=== PATIENT | female | born 1990 | race Two or more races ===

== ENCOUNTER 2016-06-04 18:19 | Emergency (ER) | payer MEDICAID ==
[~2016-06-04] VITALS: Ht 167.6 cm; Wt 92.1 kg
[~2016-06-04 18:19] MED LIST: AZITHROMYCIN250 MG ORAL; CYCLOBENZAPRINE10 MG ORAL; IBUPROFEN600 MG ORAL; NKM; TAMIFLU75 MG ORAL
[2016-06-04] MEDS ORDERED: MULTIVITAMINS1 EAC8 ORAL (18:50)
[2016-06-04 18:51] VITALS: BP 101/60
[2016-06-04] MEDS ORDERED: Methocarbamol 750mg tab ORAL ONE (19:00)
[2016-06-04] MEDS ORDERED: TYLENOL EXTRA500 MG ORAL (20:10)
[2016-06-04] MEDS ORDERED: ROBAXIN-750750 MG PO (20:10)
[2016-06-04 20:52] VITALS: BP 101/60
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
--- NOTE | 2016-06-05 11:44 | Diagnostic Imaging Report ---
Indication: PAIN Technique: 3 views of the cervical spine Comparison: none Findings: No prevertebral soft tissue swelling. Normal bony alignment. No acute fractures. No dislocations. Vertebral body heights are preserved. Disc spaces are preserved. Impression: Negative
== END 2016-06-04 20:17 | disposition home or self-care (01) ==
LOC: EMR 19:12
DX: S16.1XXA Strain of muscle, fascia and tendon at neck level, initial encounter (principal); Z98.84 Bariatric surgery status; V43.52XA Car driver injured in collision with other type car in traffic accident, initial encounter; Y92.410 Unspecified street and highway as the place of occurrence of the external cause; Y99.8 Other external cause status
CPT/HCPCS: 72040; 99284

== ENCOUNTER 2017-03-26 17:27 | Emergency (ER) | payer MEDICAID ==
[~2017-03-26] VITALS: Ht 167.6 cm; Wt 81.6 kg
[~2017-03-26 17:27] MED LIST changes: +MULTIVITAMINS1 EAC8 ORAL; +ROBAXIN-750750 MG PO; +TYLENOL EXTRA500 MG ORAL
[2017-03-26 17:40] VITALS: BP 108/71
[2017-03-26] MEDS ORDERED: Mylanta II UD 30ml ORAL ONE (18:15)
[2017-03-26] MEDS ORDERED: Lidocaine 2% Visc 15ml soln ORAL ONE (18:15)
[2017-03-26 18:16] LABS: BASOPHILS % (AUTO) 0.8 % (0.0-2.0); EOSINOPHILS % (AUTO) 0.8 % (0.0-3.0); HEMATOCRIT 40.9 % (37.0-47.0); LYMPHOCYTES % (AUTO) 19.4 % (20.0-45.0); MEAN CORPUSCULAR VOLUME 88 FL (80-99); MONOCYTES % (AUTO) 5.9 % (1.0-10.0); NEUTROPHILS % (AUTO) 73.1 % (45.0-75.0); PLATELET COUNT 256 K/UL (150-450); RED BLOOD COUNT 4.62 M/UL (4.20-5.40); RED CELL DISTRIBUTION WIDTH 13.4 % (11.6-14.8); WHITE BLOOD COUNT 8.8 K/UL (4.8-10.8)
[2017-03-26 18:21] LABS: APPEARANCE,URINE CLEAR; BILIRUBIN, URINE NEGATIVE (NEGATIVE); GLUCOSE, URINE (UA) NEGATIVE (NEGATIVE); KETONES,URINE NEGATIVE (NEGATIVE); LEUKOCYTE ESTERASE ,URINE 1+ (NEGATIVE); NITRITE,URINE NEGATIVE (NEGATIVE); PH,URINE 7 (4.5-8.0); PROTEIN,URINE NEGATIVE (NEGATIVE); UROBILINOGEN,URINE 1 MG/DL (0.0-1.0)
[2017-03-26 18:22] LABS: COLOR,URINE YELLOW
[2017-03-26 18:42] LABS: ANION GAP 7 mmol/L (5-15); BLOOD UREA NITROGEN 14 mg/dL (7-18); CARBON DIOXIDE 28 MMOL/L (21-32); CHLORIDE 103 MMOL/L (98-107); CREATININE 0.7 MG/DL (0.55-1.30); POTASSIUM 3.9 MMOL/L (3.5-5.1); SODIUM 138 MMOL/L (136-145)
[2017-03-26 18:46] LABS: ALANINE AMINOTRANSFERASE 20 U/L (12-78); ALBUMIN 3.9 G/DL (3.4-5.0); ALBUMIN/GLOBULIN RATIO 0.9 (1.0-2.7); ALKALINE PHOSPHATASE 82 U/L (46-116); ASPARTATE AMINO TRANSFERASE 53 U/L (15-37); BILIRUBIN,TOTAL 0.3 MG/DL (0.2-1.0)
[2017-03-26] MEDS ORDERED: Ketorolac 30mg Inj IV ONE (19:15)
--- NOTE | 2017-03-26 19:15 | Emergency Room Report ---
History of Present Illness General Chief Complaint: Abdominal Pain Source: Patient Present Illness HPI 26 YO Female presents to the ED c/o acute onset of 9/10 in severity epigastric pain with bloating sensation times one hour. Patient reports for prior episodes over the course of 3 months with similar presentation. Patient denies fevers, chills, nausea, vomiting, constipation or diarrhea. Patient reports pain discomfort in the right shoulder noted just prior to onset of abdominal pain this is consistent with previous episodes. She states she had a followup visit with her GI surgeon last week and was given referral for liver ultrasound. Patient denies right upper quadrant pain she reports pain is localized to the epigastric area. She denies history of acid reflux or complications after surgery. Patient reports she had a gastric sleeve surgery performed one year ago. He should also noted that her symptoms onset at each episode for approximately 20-30 minutes after oral intake. She denies blood in the stool or black tarry stools. She denies , dysuria or hematuria . She denies radiation of her pain to the back . Denies CP, Palpitations, LOC, AMS , dizziness, Changes in Vision, Sensation, paresthesias, or a sudden severe headache. Allergies: Coded Allergies: ASPIRIN (Verified Allergy, Unknown, Irritate stomach, 03/26/17) Patient History Past Medical History: see triage record, other - gastric sleeve 1 year ago. Past Surgical History: none Pertinent Family History: none Last Menstrual Period: 03/08/17 Now: No Reviewed Nursing Documentation: PMH: Agreed, PSxH: Agreed Nursing Documentation-PMH Past Medical History: No History, Except For Hx Cardiac Problems: No Hx Hypertension: No Hx Pacemaker: No Hx Asthma: No Hx COPD: No Hx Diabetes: No Hx Cancer: No Hx Gastrointestinal Problems: Yes - Gastric sleeve bypass Hx Dialysis: No History Of Psychiatric Problem: No Hx Neurological Problems: No Hx Cerebrovascular Accident: No Hx Seizures: No Review of Systems All Other Systems: negative except mentioned in HPI Physical Exam Vital Signs Date Time Temp Pulse Resp B/P (MAP) Pulse Ox O2 Delivery O2 Flow Rate FiO2 03/26/17 17:39 98.1 71 20 108/71 100 Room Air Sp02 EP Interpretation: reviewed, normal General Appearance: well appearing, no apparent distress, alert, GCS 15, non- toxic Head: normocephalic, atraumatic ENT: hearing grossly normal, normal voice Neck: full range of motion Respiratory: lungs clear, normal breath sounds, speaking full sentences Cardiovascular #1: regular rate, rhythm Gastrointestinal: normal bowel sounds, non tender, soft, no organomegaly, no peritonitis, non-distended, no guarding, tenderness, other - Negative [place] signs, Negative MacBurney's sign, No Peritoneal signs. Rectal: deferred Musculoskeletal: back normal, gait/station normal, normal range of motion Neurologic: alert, oriented x3, responsive, motor strength/tone normal, sensory intact, normal gait, speech normal, grossly normal Psychiatric: judgement/insight normal Skin: normal color, no rash, warm/dry, well hydrated Medical Decision Making PA Attestation Dr. hickman is my supervising Physician whom patient management has been discussed with. Diagnostic Impression: Primary Impression: Abdominal pain Qualified Codes: R10.13 - Epigastric pain Additional Impression: History of gastric stapling ER Course 26 YO Female presents to the ED c/o acute onset of 9/10 in severity epigastric pain with bloating sensation times one hour. Patient reports for prior episodes over the course of 3 months with similar presentation. Patient denies fevers, chills, nausea, vomiting, constipation or diarrhea. Patient reports pain discomfort in the right shoulder noted just prior to onset of abdominal pain this is consistent with previous episodes. She states she had a followup visit with her GI surgeon last week and was given referral for liver ultrasound. Patient denies right upper quadrant pain she reports pain is localized to the epigastric area. She denies history of acid reflux or complications after surgery. Patient reports she had a gastric sleeve surgery performed one year ago. He should also noted that her symptoms onset at each episode for approximately 20-30 minutes after oral intake. She denies blood in the stool or black tarry stools. She denies , dysuria or hematuria . She denies radiation of her pain to the back . Denies CP, Palpitations, LOC, AMS , dizziness, Changes in Vision, Sensation, paresthesias, or a sudden severe headache. Ddx considered but are not limited to Diverticulitis, acute appy, diarrhea,UC, PUD, GE, pancreatitis, gallstones, gastric sleeve complication just to name a few. Vital signs: are WNL, pt. is afebrile H&PE are most consistent with Episodic epigastric pain x 3 months with hx of gastric stapling/sleeve procedure 1 year ago. no evidence on PE to suggest acute abdomen at this time. negative willoughby's. Some mild epigastric TTP. Pt. is non-toxic in appearance and NAD. ORDERS: -CBC, CMP, lipase, UA -Urine Hcg: negative ED INTERVENTIONS: -- GI Cocktail: lidocaine, Mylanta -- Pepcid PO - Toradol IV Pt. reports her pain is improving with ED interventions. -I do not identify an emergent condition at this time. With current presentation and unremarkable laboratory work up, pt. is stable for close outpatient follow up with her GI Surgeon and conservative treatment. D/w pt. to return promptly to ED with worsening or new symptoms.- Pt. verbalizes' understanding and agreement with proposed treatment plan.proposed treatment plan. DISCHARGE: At this time pt. is stable for d/c to home. Will provide printed patient care instructions, and any necessary prescriptions. Care plan and follow up instructions have been discussed with the patient prior to discharge. Labs Test 03/26/17 17:47 03/26/17 18:00 Urine Color Yellow Urine Appearance Clear Urine pH 7 (4.5-8.0) Urine Specific [place] 1.015 (1.005-1.035) Urine Protein Negative (NEGATIVE) Urine Glucose (UA) Negative (NEGATIVE) Urine Ketones Negative (NEGATIVE) Urine Occult Blood Negative (NEGATIVE) Urine Nitrite Negative (NEGATIVE) Urine Bilirubin Negative (NEGATIVE) Urine Urobilinogen 1 MG/DL (0.0-1.0) Urine Leukocyte Esterase 1+ (NEGATIVE) Urine RBC 0-2 /HPF (0 - 2) Urine WBC 2-4 /HPF (0 - 2) Urine Squamous Epithelial Cells Few /LPF (NONE/OCC) Urine Amorphous Sediment Few /LPF (NONE) Urine Bacteria Few /HPF (NONE) Urine HCG, Qualitative Negative White Blood Count 8.8 K/UL (4.8-10.8) Red Blood Count 4.62 M/UL (4.20-5.40) Hemoglobin 13.0 G/DL (12.0-16.0) Hematocrit 40.9 % (37.0-47.0) Mean Corpuscular Volume 88 FL (80-99) Mean Corpuscular Hemoglobin 28.2 PG (27.0-31.0) Mean Corpuscular Hemoglobin Concent 31.9 G/DL (32.0-36.0) Red Cell Distribution Width 13.4 % (11.6-14.8) Platelet Count 256 K/UL (150-450) Mean Platelet Volume 8.3 FL (6.5-10.1) Neutrophils (%) (Auto) 73.1 % (45.0-75.0) Lymphocytes (%) (Auto) 19.4 % (20.0-45.0) Monocytes (%) (Auto) 5.9 % (1.0-10.0) Eosinophils (%) (Auto) 0.8 % (0.0-3.0) Basophils (%) (Auto) 0.8 % (0.0-2.0) Sodium Level 138 MMOL/L (136-145) Potassium Level 3.9 MMOL/L (3.5-5.1) Chloride Level 103 MMOL/L (98-107) Carbon Dioxide Level 28 MMOL/L (21-32) Anion Gap 7 mmol/L (5-15) Blood Urea Nitrogen 14 mg/dL (7-18) Creatinine 0.7 MG/DL (0.55-1.30) Estimat Glomerular Filtration Rate > 60 mL/min (>60) Glucose Level 101 MG/DL (74-106) Calcium Level 9.0 MG/DL (8.5-10.1) Total Bilirubin 0.3 MG/DL (0.2-1.0) Aspartate Amino Transf (AST/SGOT) 53 U/L (15-37) Alanine Aminotransferase (ALT/SGPT) 20 U/L (12-78) Alkaline Phosphatase 82 U/L (46-116) Total Protein 8.1 G/DL (6.4-8.2) Albumin 3.9 G/DL (3.4-5.0) Globulin 4.2 g/dL Albumin/Globulin Ratio 0.9 (1.0-2.7) Lipase 219 U/L (73-393) Last Vital Signs Date Time Temp Pulse Resp B/P (MAP) Pulse Ox O2 Delivery O2 Flow Rate FiO2 03/26/17 17:40 98.1 71 20 108/71 100 Room Air Disposition: HOME, SELF-CARE Condition: Stable Scripts Mag Hydrox/Al Hydrox/Simeth (ALUM-MAG HYDROXIDE-SIMETH LIQ) 360 Ml Oral.susp 20 ML PO BID for 7 Days, #360 ML Prov: Breanne Barnes 03/26/17 Ranitidine Hcl* (ZANTAC*) 150 Mg Tablet 150 MG ORAL TWICE A DAY, #20 TAB Prov: Breanne Barnes 03/26/17 Referrals: [facility] (PCP) Patient Instructions: Abdominal Pain, Adult, Food Choices to Help Relieve Diarrhea, Adult, Gastritis, Adult, [id number] Additional Instructions: Take medications as directed. Follow up with your GI SURGEON in 3-5 days, even if your symptoms have resolved. --Please review list of primary care clinics, if you do not already have a primary care provider Return sooner to ED if new symptoms occur, or current symptoms become worse. - Please note that this Emergency Department Report was dictated using [employer] communications manager technology software, occasionally this can lead to erroneous entry secondary to interpretation by the dictation equipment. Breanne Barnes Mar 26, 2017 19:15
[2017-03-26] MEDS ORDERED: ZANTAC150 MG ORAL (20:01)
[2017-03-26] MEDS ORDERED: ALUM-MAG HYDRO360 ML PO (20:01)
[2017-03-26 20:13] VITALS: BP 116/76
[2017-03-26 20:14] VITALS: BP 108/71
== END 2017-03-26 20:16 | disposition home or self-care (01) ==
LOC: EMR 17:51
DX: R10.13 Epigastric pain (principal); Z98.84 Bariatric surgery status; Z88.6 Allergy status to analgesic agent
CPT/HCPCS: 36415; 80053; 81003; 81025; 83690; 85025; 96374; 99284; J1885

== ENCOUNTER 2018-08-11 21:12 | Emergency (ER) | payer MEDICAID ==
[~2018-08-11] VITALS: Ht 167.6 cm; Wt 81.6 kg
[~2018-08-11 21:12] MED LIST changes: +ALUM-MAG HYDRO360 ML PO; +ZANTAC150 MG ORAL
[2018-08-11 21:26] VITALS: BP 147/81
--- NOTE | 2018-08-11 21:28 | NUR ---
ED Nurse Note: Patient walked in to ER c/o left wrist pain. Per patient she triped over and fell on her left wrist. AAO x4, VSS at this time, skin is dry, warm to touch.
[2018-08-11] MEDS ORDERED: HYDROcodone/Acetamin 5/325 tab ORAL ONE (21:30)
[2018-08-11] MEDS ORDERED: IBUPROFEN600 MG ORAL (22:01)
--- NOTE | 2018-08-11 22:01 | Emergency Room Report ---
History of Present Illness General Chief Complaint: Upper Extremity Injury Source: Patient Present Illness [facility] This is a 28-year-old hand dominant. She presents with chief complaint of left wrist pain. Onset yesterday. She fell on an outstretched hand. Since then she complained of left wrist pain. Worse with movement. Unable to pick anything up. Pain is 8 out of 10. No other injury. Allergies: Coded Allergies: ASPIRIN (Verified Allergy, Unknown, Irritate stomach, 03/26/17) Patient History Past Medical History: see triage record, old chart reviewed Past Surgical History: none Pertinent Family History: none Social History: Denies: smoking Last Menstrual Period: 08/02/18 Now: No Immunizations: other Reviewed Nursing Documentation: PMH: Agreed; PSxH: Agreed Nursing Documentation-PMH Past Medical History: No Stated History Hx Cardiac Problems: No Hx Hypertension: No Hx Pacemaker: No Hx Asthma: No Hx COPD: No Hx Diabetes: No Hx Cancer: No Hx Gastrointestinal Problems: Yes - Gastric sleeve bypass Hx Dialysis: No Hx Neurological Problems: No Hx Cerebrovascular Accident: No Hx Seizures: No Review of Systems Eye: Denies: eye pain, blurred vision ENT: Denies: ear pain, nose congestion, throat swelling Respiratory: Denies: cough, shortness of breath Cardiovascular: Denies: chest pain, palpitations Gastrointestinal: Denies: abdominal pain, diarrhea, nausea, vomiting Musculoskeletal: Reports: joint pain; Denies: back pain Skin: Denies: rash Neurological: Denies: headache, numbness Endocrine: Denies: increased thirst, increased urine Hematologic/Lymphatic: Denies: easy bruising All Other Systems: negative except mentioned in HPI Physical Exam Vital Signs Date Time Temp Pulse Resp B/P (MAP) Pulse Ox O2 Delivery O2 Flow Rate FiO2 08/11/18 21:18 98.1 64 14 147/81 (103) 100 Room Air Vitals normal Sp02 EP Interpretation: reviewed, normal General Appearance: well appearing, no apparent distress, alert Head: normocephalic, atraumatic Eyes: bilateral eye PERRL, bilateral eye EOMI ENT: hearing grossly normal, normal pharynx Neck: full range of motion, supple, no meningismus Respiratory: chest non-tender, lungs clear, normal breath sounds Cardiovascular #1: regular rate, rhythm, no murmur Gastrointestinal: normal bowel sounds, non tender, no mass, no organomegaly, no bruit, non-distended Musculoskeletal: back normal, gait/station normal, normal range of motion, other - Left wrist: She has tenderness over the distal radius to the distal forearm and wrist area. Full range of motion. Elbow nontender. Fingers nontender. Psychiatric: mood/affect normal Skin: warm/dry Procedures Splinting Splinting : Consent: Verbal Location: Wrist Pre-Made Type: velcro Splint: volar Pre-Proc Neuro Vasc Exam: normal Post-Proc Neuro Vasc Exam: normal Patient Tolerated: Well Complications: None Medical Decision Making Diagnostic Impression: Primary Impression: Wrist sprain Qualified Codes: S63.502A - Unspecified sprain of left wrist, initial encounter ER Course This patient presents with wrist sprain. No fracture dislocation. Will discharge home. Other X-Ray Diagnostic Results Other X-Ray Diagnostic Results : X-Ray ordered: Left wrist x-rays # of Views/Limited Vs Complete: 3 View Indication: Pain EP Interpretation: Yes Interpretation: no dislocation, no soft tissue swelling, no fractures Impression: No acute disease Electronically Signed by: Glenn Grace MD Last Vital Signs Date Time Temp Pulse Resp B/P (MAP) Pulse Ox O2 Delivery O2 Flow Rate FiO2 08/11/18 21:26 98.1 14 147/81 100 Room Air 08/11/18 21:18 64 Status: improved Disposition: HOME, SELF-CARE Condition: Stable Scripts Ibuprofen* (MOTRIN*) 600 Mg Tablet 600 MG ORAL THREE TIMES A DAY, #30 TAB 0 Refills Prov: Glenn Grace MD 08/11/18 Additional Instructions: Elevate wrist. Ice pack to the area. Follow-up with your doctor in 7 days. Return if worse. Glenn Grace MD Aug 11, 2018 22:01
[2018-08-11 22:03] VITALS: BP 147/81
--- NOTE | 2018-08-11 22:05 | NUR ---
ED Nurse Note: Pt cleared by health care Provider for discharge. DC instructions/prescription was given and explained to pt and verbalized understanding of teachings. All medical deviecs such as ID band removed. Pt is AAO x4, ambulatory and left with all personal belongings.
--- NOTE | 2018-08-12 11:37 | Diagnostic Imaging Report ---
Indication: Left wrist pain Findings: 3 views of the left wrist were obtained. No acute fractures, malalignment, erosions or periostitis are identified. Soft tissues are unremarkable. Impression: No acute findings.
== END 2018-08-11 22:07 | disposition home or self-care (01) ==
LOC: EMR 21:30
DX: S63.502A Unspecified sprain of left wrist, initial encounter (principal); W19.XXXA Unspecified fall, initial encounter; Y92.9 Unspecified place or not applicable; Z88.6 Allergy status to analgesic agent
CPT/HCPCS: 29125; 99283